=== PATIENT | female | born 1950 | race Two or more races ===

== ENCOUNTER 2021-07-29 08:00 | Outpatient (CLI) | payer OTHER ==
[~2021-07-29 08:00] MED LIST: SYNTHROID100 MCG; SYNTHROID75 MCG
== END 2021-07-29 08:30 | disposition home or self-care (01) ==
LOC: PPH VACUNA 08:00
PROVIDERS: ATTEND Emergency Medicine Pediatric Emergency Medicine
DX: Z23 Encounter for immunization (principal)

== ENCOUNTER 2021-08-17 07:19 | Outpatient (CLI) | payer OTHER | END 2021-08-17 07:22 | disposition home or self-care (01) | LOC: NUCLEAR 07:19 | PROVIDERS: ATTEND Internal Medicine Cardiovascular Disease | DX: I82.409 Acute embolism and thrombosis of unspecified deep veins of unspecified lower extremity (principal) ==

== ENCOUNTER 2021-08-26 07:18 | Outpatient (CLI) | payer OTHER | END 2021-08-26 09:16 | disposition home or self-care (01) | LOC: NUCLEAR 07:18 | PROVIDERS: ATTEND Internal Medicine | DX: M81.0 Age-related osteoporosis without current pathological fracture (principal); C50.812 Malignant neoplasm of overlapping sites of left female breast; R74.8 Abnormal levels of other serum enzymes | CPT/HCPCS: 77080; 78803; A9503 ==

== ENCOUNTER 2021-09-10 10:34 | Outpatient (CLI) | payer OTHER | END 2021-09-10 10:41 | disposition home or self-care (01) | LOC: RAD 10:34 | DX: M17.9 Osteoarthritis of knee, unspecified (principal) ==